=== PATIENT | female | born 1930 | race Caucasian/White ===

== ENCOUNTER 2019-08-31 14:46 | Observation (INO) ==
[2019-08-31] MEDS ORDERED: ACETAMINOPHEN 325 MG TABLET PO PRN (15:02)
[2019-08-31] MEDS ORDERED: DOCUSATE SODIUM 100 MG CAPSULE PO PRN (15:02)
[2019-08-31] MEDS ORDERED: ONDANSETRON 4 MG/2 ML VIAL IV PRN (15:02)
[2019-08-31] MEDS ORDERED: ENOXAPARIN 60 MG/0.6 ML SYRINGE SUBCUT STA (15:02)
[2019-08-31] MEDS: SODIUM CHLORIDE 0.9% 1,000 ML IV SCH (15:54)
[2019-08-31 16:07] LABS: Basophils # 0.1 10*3/uL (0.0-0.2); Basophils % 0.9 % (0.0-0.8); Eosinophils # 0.1 10*3/uL (0.0-0.87); Eosinophils % 2.4 % (0.00-10.9); Hematocrit 35.2 VOL% (35.7-47.0); Immature Granulocytes % 0.3 %; Immature Granulocytes Absolute 0.02 #; Lymphocytes # 1.9 10*3/uL (1.4-4.0); Mean Corpuscular HGB Conc 31.3 GM/DL (32-36); Mean Corpuscular Volume 84.4 FL (87-102); Mean Platelet Volume 9.5 FL (9.6-12.0); Monocytes % 8.6 % (1.7-12.7); Neutrophils % 54.8 % (38.7-73.9); Platelet Count 246 T/CUMM (130-400); Red Blood Count 4.17 MC/CUMM (3.8-5.5); Red Cell Distribution Width 15.2 % (9.3-17.3); White Blood Count 5.8 T/CUMM (4-12)
[2019-08-31 16:28] LABS: Albumin 3.6 G/DL (3.4-5.0); Bilirubin,Total 0.4 MG/DL (0.2-1.0); Calcium 9.4 MG/DL (8.5-10.1); Osmolality,Calculated 280.3 MOS/KG (273-304); Total Protein 7.3 G/DL (6.4-8.3)
[2019-08-31 16:30] LABS: Troponin I < 0.015 NG/ML (0.00-0.045)
[2019-08-31] MEDS: ASPIRIN EC 81 MG TABLET PO SCH (17:15)
[2019-08-31] MEDS: METOPROLOL TARTRATE 25 MG TABLET PO SCH (17:16)
[2019-08-31 19:31] LABS: Apearance,Urine CLEAR (Clear); Bilirubin,Urine Negative (Negative); Blood, Urine Negative (Negative); Glucose,Urine (UA) Negative (Negative); Hyaline Casts,Urine 1 /LPF (0-3); Ketones,Urine Negative (Negative); Mucus,Urine Occasional /LPF (Occasional); Nitrite,Urine Negative (Negative); Protein,Urine Negative; RBC,Urine 1 /HPF (0-4); Urine Color Yellow (Yellow); Urine Specific Gravity 1.009 (1.001-1.035); Urine Urobilinogen < 2.0 EU/DL (0.2-1.0); WBC,Urine <1 /HPF (0-6)
[2019-09-01 01:14] LABS: Risk Ratio 2.82; VLDL CHOLESTEROL 17.8 MG/DL
[2019-09-01] MEDS: ASPIRIN EC 81 MG TABLET PO SCH (09:00)
[2019-09-01] MEDS ORDERED: LISINOPRIL 20 MG TABLET PO SCH (09:00)
[2019-09-01] MEDS ORDERED: PANTOPRAZOLE 40 MG TABLET PO SCH (09:00)
[2019-09-01] MEDS: METOPROLOL TARTRATE 25 MG TABLET PO SCH (09:00)
[2019-09-01] MEDS: SODIUM CHLORIDE 0.9% 1,000 ML IV SCH (14:00)
[2019-09-01 15:55] VITALS: BP 163/68
== END 2019-09-01 16:35 | disposition home or self-care (01) ==
LOC: INTOOBSV 15:08 → N.2E 15:08
PROVIDERS: ADMIT Family Medicine; ATTEND Family Medicine